=== PATIENT | male | born 1960 | race Caucasian/White ===

== ENCOUNTER 2022-02-13 07:00 | Outpatient (NON) | payer OTHER, SELFPAY | END 2022-02-13 07:01 | disposition home or self-care (01) | LOC: ANHLAB 02-14 08:08 | PROVIDERS: PCP Family Medicine; Visit Provider Internal Medicine Gastroenterology | DX: K51.90 Ulcerative colitis, unspecified, without complications (principal) | CPT/HCPCS: 88305 ==

== ENCOUNTER 2022-02-13 07:38 | Day surgery (SDC) | payer OTHER, SELFPAY ==
[2021-11-30 13:11] VITALS: BMI 26.1
[2022-02-06 13:43] VITALS: BMI 26.2
[2022-02-13 08:00] VITALS: BP 139/83; PULSE 74; RESP 16; TEMP 36.9; O2SAT 97
[2022-02-13] MEDS: LACTATED RINGERS 1,000 ML 150 ML IV CONT (08:20)
[2022-02-13 08:25] VITALS: BMI 25.2
--- NOTE | 2022-02-13 08:38 | P.PNAN_ITS ---
Anes - Initial Pre Proc Eval Procedure: Operation Date: 02/13/22 09:30 Proposed Procedures p Diagnostic Colonoscopy - Eron Lema MD Date/Time: 02/13/22 08:38 Surgeon: Eron Lema MD Pre Op Diagnosis: Ulcerative Colitis Patient Data Age: 61 Gender: M Height: 1.91 m Weight: 91.4 kg Last Vital Signs Temp 36.9 C 02/13/22 08:00 Pulse 74 02/13/22 08:00 Resp 16 02/13/22 08:00 BP 139/83 02/13/22 08:00 Pulse Ox 97 02/13/22 08:00 O2 Del Method Room Air 02/13/22 08:00 Allergies Allergy/AdvReac Type Severity Reaction Status Date / Time ibuprofen Allergy Unknown FACIAL Verified 02/13/22 08:21 SWELLING Home Medications Medication Instructions Recorded Confirmed Type folic acid 1 mg tablet 1 mg PO DAILY #30 tabs 09/28/21 02/06/22 Rx sulfasalazine 500 mg 1 g PO QID #240 tabs 11/02/21 02/06/22 Rx tablet,delayed release sodium,potassium,mag sulfates 17.5 See Rx Instructions PO .COMPLEX 11/30/21 Rx gram-3.13 gram-1.6 gram oral soln #354 mL (Suprep Bowel Prep Kit) Patient hx anesthesia problems: none Family hx anesthesia problems: none Results Review: All pre-operative results and documents have been reviewed as part of the pre- operative evaluation. [facility] Past Medical History Medical History (Updated 02/13/22 @ 08:38 by Lew Johnson MD) Ulcerative colitis Surgical History Surgical History (Updated 02/13/22 @ 08:38 by Lew Johnson MD) H/O colonoscopy Social History Social History Smoking status: Never smoker Alcohol intake: current Substance use: never Substance use type: does not use Living arrangements: alone Spiritual care concerns: No Anes - Eval Final PreProcedure Day of Procedure 02/13/22 08:38 Patient weight: normal Heart: regular rate and rhythm Lungs: clear to auscultation Airway: Mallampati scale class II Neurological: alert and oriented Last oral intake: >/= 8 hours ASA classification: II Emergent: no Anesthetic plan: proceed Anesthesia type and monitoring: general GIVS and standard monitoring Results Review: All pre-operative results and documents have been reviewed as part of the pre- operative evaluation. Informed Consent: The patient's anesthetic plan and its attendant risks and benefits were discussed with the patient/family/POA. Questions were solicited and answers provided to the satisfaction of the patient/family/POA.
--- NOTE | 2022-02-13 08:46 | P.HP_ITS ---
History of Present Illness History of Present Illness Consent: Risks, benefits, and alternatives have been discussed and questions answered. Patient agrees to proceed with procedure. Chief complaint: Ulcerative Colitis Narrative: Alex Alonzo is a 61 year old male Presents for screening colonoscopy. Patient has a history of ulcerative colitis. Currently reports that his bowel movements are normal. He denies abdominal pain. He has had no bleeding. Patient is maintained on sulfasalazine and folic acid. Patient's last exam 8 years ago revealed only mild proctitis. Patient presents today for surveillance colonoscopy. Patient's family history is noncontributory. Patient denies any blood in his stools his bowel habits are normal. Review of Systems Review of Systems: Review of systems noncontributory. [facility] Past Medical History Medical History (Updated 02/13/22 @ 08:38 by Lew Johnson MD) Ulcerative colitis Surgical History Surgical History (Updated 02/13/22 @ 08:38 by Lew Johnson MD) H/O colonoscopy Social History Social History Smoking status: Never smoker Alcohol intake: current Substance use: never Substance use type: does not use Living arrangements: alone Spiritual care concerns: No Meds Home Medications and Allergies Home Medications Medication Instructions Recorded Confirmed Type folic acid 1 mg tablet 1 mg PO DAILY #30 tabs 09/28/21 02/06/22 Rx sulfasalazine 500 mg 1 g PO QID #240 tabs 11/02/21 02/06/22 Rx tablet,delayed release sodium,potassium,mag sulfates 17.5 See Rx Instructions PO .COMPLEX 11/30/21 Rx gram-3.13 gram-1.6 gram oral soln #354 mL (Suprep Bowel Prep Kit) Allergies Allergy/AdvReac Type Severity Reaction Status Date / Time ibuprofen Allergy Unknown FACIAL Verified 02/13/22 08:21 SWELLING Vital Signs Vital Signs - 24 hr 02/13/22 08:00 Temperature 98.5 F Pulse Rate 74 Respiratory Rate 16 Blood Pressure 139/83 Pulse Oximetry 97 Oxygen Delivery Room Air Exam Narrative: Physical exam reveals patient be alert. Vital signs stable. HEENT exam is unremarkable. Patient is anicteric. Lungs are clear to auscultation and percussion. Heart is without murmur or extra sounds. Abdomen bowel sounds are present soft nontender with no organomegaly. Digital external rectal exam is normal. Assessment and Plan Assessment and plan (1) Ulcerative colitis: Code(s): K51.90 - Ulcerative colitis, unspecified, without complications Status: Acute Assessment and Plan: Patient has a history of ulcerative colitis. [place] to be in clinical remission currently takes sulfasalazine 1g p.o. q.i.d.. Additionally takes folic acid. Plan for surveillance colonoscopy now and consider this at 3 year intervals in the future.
[2022-02-13 09:49] VITALS: BP 131/88; PULSE 70; RESP 16; O2SAT 97
[2022-02-13 09:59] VITALS: BP 143/88; PULSE 56; RESP 18; O2SAT 98
[2022-02-13 10:09] VITALS: BP 141/92; PULSE 71; RESP 20; O2SAT 97
--- NOTE | 2022-02-13 10:58 | WPDANESPN ---
Anes - Prog Note Post-Op Date/Time: 02/13/22 10:58 Cardiovascular status: normal Respiratory status: normal Airway patency: baseline Mental status: baseline Post-Op hydration status: normal Vital Signs: Last Vital Signs Temp 36.9 C 02/13/22 08:00 Pulse 71 02/13/22 10:09 Resp 20 02/13/22 10:09 BP 141/92 H 02/13/22 10:09 Pulse Ox 97 02/13/22 10:09 O2 Del Method Room Air 02/13/22 10:09 Pain Score (VAS): 0/10 I/O: Intake & Output 02/12/22 02/13/22 02/13/22 23:59 07:59 15:59 Intake Total 450 Balance 450 Patient Feedback: Patient satisfied with anesthetic care.
== END 2022-02-13 10:56 | disposition home or self-care (01) ==
PROVIDERS: PCP Family Medicine; Visit Provider Internal Medicine Gastroenterology
PROC: 0DJD8ZZ Inspection of Lower Intestinal Tract, Via Natural or Artificial Opening Endoscopic (ICD-10-PCS; CPT 45378; principal; 2022-02-13 09:30)
DX: K51.90 Ulcerative colitis, unspecified, without complications (principal)
CPT/HCPCS: 45380